=== PATIENT | female | born 1980 | race Caucasian/White ===

== ENCOUNTER 2022-01-13 09:58 | Outpatient (CLI) | payer BC, SELFPAY ==
[2022-01-13 15:22] LABS: Chloride* 106 mmol/L (96-114)
[2022-01-13 15:23] LABS: Potassium* 4.8 mmol/L (3.6-5.1); Sodium* 142 mmol/L (135-149)
[2022-01-13 15:26] LABS: Blood Urea Nitrogen* 13 mg/dL (5-24); Calcium* 9.7 mg/dL (8.4-10.6); Carbon Dioxide* 27 mmol/L (20-32); Glucose* 123 mg/dL (60-115)
[2022-01-13 15:42] LABS: Creatinine* 0.7 mg/dL (0.5-1.5); Estimated Glomerular Filt Rate 111 ml/min; Vitamin D 25 Hydroxy* 20 ng/mL (30-80)
[2022-01-13 15:55] LABS: Basophils Absolute Auto 0.05 K/uL (0.00-0.30); Basophils Percent Auto 0.5 % (0.0-3.0); Eosinophils Absolute Auto 0.21 K/uL (0.00-0.50); Eosinophils Percent Auto 1.9 % (0.0-7.0); Hematocrit 43.5 % (33.0-51.0); Hemoglobin* 14.5 gm/dL (12.0-16.0); Immature Granulocytes Abs Auto 0.01 K/uL (0.00-0.30); Immature Granulocytes Pct Auto 0.1 %; Lymphocytes Percent Auto 19.7 % (20-44); Mean Corpuscular HGB Conc 33 gm/dL (32-36); Mean Corpuscular Hemoglobin 31 pg (26-34); Mean Corpuscular Volume 93 fL (80-100); Monocytes Percent Auto 7.3 % (0.0-11.0); Neutrophils Absolute Auto 7.68 K/uL (1.7-7.0); Neutrophils Percent Auto 70.5 % (42.0-72.0); Platelet Count* 291 K/uL (140-440); RDW Coefficient of Variation % 12.4 % (11.5-15.5); White Blood Count* 10.88 K/uL (4.50-11.00)
[2022-01-13 16:30] LABS: Slide Review Reflex No
== END 2022-01-13 09:59 | disposition home or self-care (01) ==
PROVIDERS: PCP Family Medicine; Visit Provider Family Medicine
DX: N92.0 Excessive and frequent menstruation with regular cycle (principal); R53.83 Other fatigue; E55.9 Vitamin D deficiency, unspecified
CPT/HCPCS: 80048; 82306; 84443; 85025

== ENCOUNTER 2023-11-02 12:20 | Outpatient (CLI) | payer OTHER, SELFPAY | END 2023-11-02 12:21 | disposition home or self-care (01) | PROVIDERS: PCP Family Medicine; Visit Provider Family Medicine | DX: R53.83 Other fatigue (principal); R61 Generalized hyperhidrosis; N92.6 Irregular menstruation, unspecified; G43.909 Migraine, unspecified, not intractable, without status migrainosus; F33.1 Major depressive disorder, recurrent, moderate; Z13.6 Encounter for screening for cardiovascular disorders | CPT/HCPCS: 80048; 80061; 82306; 83001; 83002; 84443; 85025 ==

== ENCOUNTER 2024-03-22 12:26 | Outpatient (CLI) | payer OTHER, SELFPAY | END 2024-03-22 12:27 | disposition home or self-care (01) | LOC: FBOREF 12:27 | PROVIDERS: PCP Family Medicine; Visit Provider Family Medicine | DX: E55.9 Vitamin D deficiency, unspecified (principal); R35.0 Frequency of micturition | CPT/HCPCS: 82306; 87086 ==

== ENCOUNTER 2024-11-04 15:50 | Outpatient (CLI) | payer OTHER, SELFPAY | END 2024-11-04 15:51 | disposition home or self-care (01) | LOC: NFLDREF 11-11 10:22 | PROVIDERS: PCP Family Medicine; Referring Provider Family Medicine; Visit Provider Family Medicine | DX: R35.0 Frequency of micturition (principal); N39.0 Urinary tract infection, site not specified | CPT/HCPCS: 87086 ==